=== PATIENT | female | born 1960 | race Hispanic/Latino ===

== ENCOUNTER 2016-08-29 10:17 | Emergency (ER) | payer OTHER ==
[~2016-08-29] VITALS: Ht 160 cm; Wt 60.8 kg
[~2016-08-29 10:17] MED LIST: ASPIRIN81 M4 PO; CARDIZEM30 M1 PO; PROAIR HFA8.5 GM INH; SYMBICORT 16010.2 GM
--- NOTE | 2016-08-29 11:04 | ED CARDIAC/CP/PALPITATIONS ---
History of Present Illness General Chief Complaint: Chest Pain Stated Complaint: CP PAIN X 3 HRS Source: patient, old records Exam Limitations: no limitations Vital Signs & Intake/Output Vital Signs & Intake/Output Vital Signs Date Time Temp Pulse Resp B/P Pulse O2 O2 Flow FiO2 Ox Delivery Rate 08/29 1241 97.0 67 18 110/59 99 Room Air Room Air 08/29 1027 98.1 79 20 103/61 99 Room Air Allergies Coded Allergies: No Known Allergies (08/02/16) Reconcile Medications Albuterol Sulfate (Proair Hfa) 90 MCG HFA.AER.AD 2 PUF INH Q4-6 PRN PRN shortness of breath (Reported) Aspirin (Aspirin*) 81 MG TAB.CHEW 1 TAB PO DAILY [facility] Budesonide/Formoterol Fumarate (Symbicort 160-4.5 Mcg Inhaler) 160 MCG-4.5 MCG/ ACTUATION HFA.AER.AD ASTHMA (Reported) Diltiazem HCl (Cardizem) 30 MG TABLET 1 TAB PO BID SVT Triage Note: PT C/O LEFT SIDED CP SINCE 0700 TODAY. PT ALSO STATES A LITTLE SOB BUT HX OF ASTHMA. PT STATES SHE TAKES DILTIAZEM FOR PALPITATIONS Triage Nurses Notes Reviewed? yes Onset: Abrupt Duration: hour(s): (4), better, constant, resolved prior to arrival Timing: recent history Quality/Severity: mild, moderate, aching Location: substernal Radiation: no radiation Activities at Onset: AT WORK Nitro Today/Relief: no nitro taken today Aspirin Today: 81 mg x 1 Associated Symptoms: DENIES HPI: 56-year-old female history of Asthma, previous episode of SVT one month ago for which she was seen and admitted here presents emergency room today for evaluation complaining of substernal chest pain is nonradiating it is 6 out of 10 that came on at 7:00 this morning while at work. Patient states episode lasted for approximately 20 minutes prior to resolving and she's been compliant with taking her medication. She reports she's been under increased stress at home. L arm pain and jaw pain back pain abdominal pain nausea vomiting or diarrhea she denies any symptoms at this time. There are no modifying factors or associated symptoms of dizziness lightheadedness palpitations. 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 see below for history Neurological: NONE EENT: NONE Cardiovascular: PALPITATIONS Respiratory: asthma Gastrointestinal: NONE Hepatic: NONE Renal: NONE Musculoskeletal: NONE Psychiatric: NONE Endocrine: NONE Blood Disorders: NONE Cancer(s): NONE CONSUMER LOAN SPECIALIST/Reproductive: NONE Surgical History Surgical History: , right shoulder laceration with stitches Psychosocial History Services at Home None What is your primary language Trinidadian Tobacco Use: Never used ETOH Use: denies use Illicit Drug Use: denies illicit drug use Family History Family History, If Any: FATHER FH: Alzheimer's disease mother FH: ovarian cancer Hx Contributory? No (CADEN READ) Review of Systems Review of Systems Constitutional: Reports: see HPI. All Other Systems: Reviewed and Negative Comments Review of systems: See HPI, All other systems negative. Constitutional, no chills no fever, no malaise HEENT: No visual changes no sore throat no congestion, no ear pain Cardiovascular: chest pain , no palpitation , no orthopnea no ankle swelling Skin, no jaundice no rashes, no change in skin Respiratory: dyspnea no cough no sputum no hemoptysis GI: No nausea no vomiting, no diarrhea, : No dysuria Muscle skeletal: No joint pain, no joint swelling, no back pain, no neck pain, Neurologic: No numbness no confusion, no headache Psych: stress no anxiety no depression,. Heme/endocrine: No bruising no bleeding Immunology: No lymphadenopathy (CADEN READ) Physical Exam Physical Exam General Appearance: well developed/nourished, no apparent distress, alert, awake , comfortable Cardiovascular: regular rate/rhythm Comments: Well-developed well-nourished person in no acute distress HEENT: Normal EENT exam; PERRL, EOMI, HEAD is atraumatic. moist mucous membranes. Neck: Supple, normal range of motion Back: Nontender, no CVA tenderness. Full range of motion Cardiovascular: Regular rate and rhythms no murmurs rubs Respiratory: Chest tender to palpation over the sternum and left shoulder.There were no bony deformities, no asymmetry. No respiratory distress. Patient speaking in full complete sentences. Breath sounds clear to auscultation bilaterally: NO W/R/R Abdomen: Soft, nontender nondistended, no appreciable organomegaly. Normal bowel sounds. No rebound/guarding Extremity: No edema, full range of motion of extremities Neuro: Alert oriented x3, motor sensory normal. There were no obvious focal neurologic abnormalities. Skin: No appreciable rash on exposed skin, skin is warm and dry. Psych: Mood and affect is normal, memory and judgment is normal. Core Measures ACS in differential dx? Yes Severe Sepsis Present: No Septic Shock Present: No (ANNA JAMISON,CADEN) Progress Differential Diagnosis: AMI, aortic dissection, atrial fibrillation, CHF/pulm edema, costochondritis, hyperkalemia, hypovolemia, hyperventilation, musculoskeletal pain, myocarditis, pancreatitis, pericarditis, pneumonia, pneumothorax, PSVT, pulmonary embolism, PUD/GERD, PVCs/PACs, respiratory failure , rib fracture, unstable angina, V-fib/V-Tach, WPW syndrome Plan of Care: Orders Procedure Date/time Status Telemetry/Attendant Sales 08/29 1104 Active TROPONIN LEVEL 08/29 1104 Complete D-DIMER 08/29 1104 Complete COMPREHENSIVE METABOLIC PANEL 08/29 1104 Complete CBC WITHOUT DIFFERENTIAL 08/29 1104 Complete EKG 08/29 1019 Active Laboratory Tests 08/29/16 1110: Anion Gap 9, Estimated GFR > 60, BUN/Creatinine Ratio 18.6, Glucose 91, Calcium 9.1, Total Bilirubin 0.4, AST 23, ALT 26, Alkaline Phosphatase 80, Troponin I < 0.01, Total Protein 6.6, Albumin 3.7, Globulin 2.9, Albumin/Globulin Ratio 1.3, D-Dimer < 200, CBC w Diff NO MAN DIFF REQ, RBC 4.46, MCV 86.5, MCH 28.8, RDW 13.4, MPV 8.1, Gran % 70.1, Lymphocytes % 25.9, Monocytes % 3.6, Eosinophils % 0.2, Basophils % 0.2, Absolute Granulocytes 6.3, Absolute Lymphocytes 2.3, Absolute Monocytes 0.3, Absolute Eosinophils 0, Absolute Basophils 0, PUBS MCHC 33.3 Patient denies any symptoms at this time labs ordered old records reviewed case discussed with Dr. Ingram 08/29/2016 12:15:23 PM on repeat evaluation patient is resting completely denies any episodes of pain discussed with her at length all of her lab results and x- ray findings a day pending troponin Discussed the patient her troponin being negative. Symptoms present for greater than 4 hours case was again discussed with Dr. Ingram pain was reproducible and chest wall given patient does a lot of heavy lifting at work patient's symptoms are consistent with muscle skeletal strain. 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 Discussed w/RAD: Radiology Read. Radiology Impression: PATIENT: VIVIANA VIRGEN PRESENT AGE: 56 PATIENT ACCOUNT NO: [id number] : 61 LOCATION: [facility] ORDERING PHYSICIAN: CADEN JAMISON SERVICE DATE: 08/29/16 EXAM TYPE: RAD - XRY-PORTABLE CHEST XRAY EXAMINATION: XR PORTABLE CHEST CLINICAL INFORMATION: Cardiomegaly dyspnea COMPARISON: Prior chest 08/02/2016 TECHNIQUE: Portable view of the chest was obtained. FINDINGS: No significant abnormality is noted involving the heart, lungs, mediastinum, bony thorax or soft tissues. IMPRESSION: Unremarkable examination. No evidence for cardiomegaly DICTATED BY: LUDY VERMA MD DATE/TIME DICTATED:08/29/161126 ALARM SERVICE TECHNICIAN: LEIDY DATE/TIME TRANSCRIBED:08/29/161126 CONFIDENTIAL, DO NOT COPY WITHOUT APPROPRIATE AUTHORIZATION. <Electronically signed in Other Vendor System> SIGNED BY: LUDY VERMA MD 08/29/16 1131 Initial ED EKG: NORMAL SINUS AT 75, NONSPECIFIC st SEGMENT CHANGES NORMAL AXIS Prior EKG: unchanged (08/02/16) Rhythm Strip: normal sinus rhythm (CADEN READ) Departure Departure Time of Disposition: 1245 Disposition: HOME OR SELF CARE Condition: Stable Clinical Impression Primary Impression: Atypical chest pain Referrals: SAMMY JACOBS PhD,ORLY Morgan (PCP/Family) Additional Instructions: Follow-up with your primary care physician on Friday. Rest, no heavy lifting. Return immediately if you redevelop symptoms or have any other concerns Departure Forms: Customer Survey General Discharge Information (CADEN READ) PA/PRIVACY MANAGER Co-Sign Statement Statement: ED Attending supervision documentation- [] I saw and evaluated the patient. I have also reviewed all the pertinent lab results and diagnostic results. I agree with the findings and the plan of care as documented in the PA's/PRIVACY MANAGER's documentation. [X] I have reviewed the ED Record and agree with the PA's/PRIVACY MANAGER's documentation. [] Additions or exceptions (if any) to the PAs/PRIVACY MANAGER's note and plan are summarized below: [] (GREGG JACOBS,ARLETH Deras) Critical Care Note Critical Care Note Critical Care Time: non-applicable (CADEN READ)
--- NOTE | 2016-08-29 11:31 | RADIOLOGY REPORT ---
EXAMINATION: XR PORTABLE CHEST CLINICAL INFORMATION: Cardiomegaly dyspnea COMPARISON: Prior chest 08/02/2016 TECHNIQUE: Portable view of the chest was obtained. FINDINGS: No significant abnormality is noted involving the heart, lungs, mediastinum, bony thorax or soft tissues. IMPRESSION: Unremarkable examination. No evidence for cardiomegaly
[2016-08-29 11:35] LABS: ABSOLUTE BASOPHIL COUNT 0 /CUMM (0.0-0.2); ABSOLUTE EOSINOPHIL COUNT 0 /CUMM (0.0-0.7); ABSOLUTE GRANULOCYTE CT 6.3 /CUMM (1.4-6.5); ABSOLUTE LYMPH COUNT 2.3 /CUMM (1.2-3.4); ABSOLUTE MONOCYTE COUNT 0.3 /CUMM (0.10-0.60); BASOPHIL % 0.2 % (0.0-2.0); EOSINOPHIL % 0.2 % (0-5); GRANULOCYTE % 70.1 % (42.2-75.2); HEMATOCRIT 38.6 % (37-47); MEAN CORPUSCULAR HGB 28.8 PG (27.0-31.0); MEAN CORPUSCULAR HGB CONC 33.3 G/DL (33.0-37.0); MEAN CORPUSCULAR VOLUME 86.5 FL (81.0-99.0); MEAN PLATELET VOLUME 8.1 FL (7.4-10.4); PLATELET COUNT 350 /CUMM (130-400); RBC DISTRIBUTION WIDTH 13.4 % (11.5-14.5); RED BLOOD CELL CT 4.46 /CUMM (4.20-5.40); WHITE BLOOD CELL COUNT 8.9 /CUMM (4.8-10.8)
[2016-08-29 12:41] VITALS: BP 110/59
== END 2016-08-29 13:00 ==
LOC: ERH 10:17
PROVIDERS: Physician Assistant Medical
DX: R07.89 Other chest pain (principal)
CPT/HCPCS: 93005; 93010